=== PATIENT | female | born 1995 | race Caucasian/White ===

== ENCOUNTER 2021-04-06 18:28 | Observation (INO) ==
[2021-04-06] MEDS ORDERED: KETOROLAC TROMETHAMINE 15 MG/ML VIAL IV STA (18:35)
[2021-04-06] MEDS ORDERED: SODIUM CHLORIDE 0.9% 500 ML IV STA (18:35)
[2021-04-06] MEDS ORDERED: MoRPHine SULFATE 4 MG/ML 1 ML CARP\\VIAL IV STA (18:40)
[2021-04-06] MEDS ORDERED: ONDANSETRON INJ 2 MG/ML 2 ML VIAL IV STA (18:41)
--- NOTE | 2021-04-06 18:41 | Emergency Department Note ---
Impression & Plan Acute appendicitis, COVID-19 ED Provider Note Provider: Rafael Richter MD DATE OF SERVICE: 04/06/2021 CHIEF COMPLAINT: Abdominal pain HISTORY OF PRESENT ILLNESS: Patient is 25-year old otherwise healthy female presenting here today complaining of onset yesterday afternoon around 4 PM of pain in the right lower quadrant of her abdomen. Patient denies any trauma. She reports some nausea throughout the day and decreased appetite. Does report nonbloody diarrhea throughout the day today. Patient states the pain was persistent throughout the day today and again located in the right lower quadrant of her abdomen. Denies history of similar pain. Denies any radiation of pain down legs or into the back. Talked with her medical provider referred her here for further evaluation. Patient has a history of abdominal surgery. Patient states she has been on OCPs and is 2 weeks away from her expected period. Patient states that she tried some Tylenol earlier in the day which did not help her pain. REVIEW OF SYSTEMS: A total of 10 review of systems was obtained and negative except as stated above in the HPI. 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 NECK: Trachea midline. LUNGS: Airway patent. No retractions. Breath sounds clear with good air entry bilaterally. HEART: Regular rate and rhythm. No chest wall tenderness ABDOMEN: Soft positive Rovsing's sign with significant tenderness in the right lower quadrant. Negative Ricci's. No flank tenderness appreciated. SKIN: Acyanotic, warm, dry, without rashes EXTREMITIES: Without swelling, tenderness or deformity NEUROLOGICAL: No focal deficits. No aphasia. No facial droop or slurred speech. CONTINUOUS CARDIAC MONITORING: was ordered and showed a heart rate of 60s to 70s bpm in normal sinus rhythm Patient's laboratory studies and imaging reviewed. Differential includes Appendicitis, ovarian cyst, ovarian torsion, ectopic pr egnancy, TOA, PID, infections, diverticulitis, UTI, obstruction, mesenteric ischemia, aortic pathology, inflammatory bowel disease, renal colic, PUD, pancreatitis, biliary pathology, hernia, volvulus, constipation, as well as other pathologies. IMPRESSION/MEDICAL DECISION MAKING: Patient presentation concerning for possible colitis or appendicitis. No history of IBD/IBS reported. Location of the pain does not seem that consistent especially with referred pain from the left abdomen for gynecological pathology. Denies any vaginal bleeding. test was sent. Basic labs are sent. CT scan of the abdomen pelvis was ordered. Patient treated her symptomatically for pain given some IV fluid and Zofran. Blood work here is reassuring without leukocytosis or anemia. No severe electrolyte abnormalities. No findings concerning for acute hepatitis or pancreatitis. No bilirubin elevation. Negative . Covid test incidentally returns positive. CT of the abdomen pelvis with IV and oral contrast per radiology reports as below. Evidence of acute uncomplicated appendicitis. Informed the patient of the findings. Surgery team was contacted. They will assess the patient and plan for further definite care of her appendicitis. Discussed with the patient. DIAGNOSIS: COVID-19, acute uncomplicated appendicitis DISPOSITION: Surgery team to evaluate for further care Preliminary Findings Only See Final Report For Complete Findings CT ABDOMEN & PELVIS With Contrast: Uncomplicated acute appendicitis. Dilated and inflamed appendix measures 9.3 mm. No free air or abscess. No bowel obstruction. Liver, gallbladder, pancreas, spleen, adrenal glands are unremarkable. No hydronephrosis. Sub-centimeters cortical cyst left kidney. Uterus and urinary bladder are unremarkable. No acute osseous findings. Radiologist: Sorin Hwang M.D. Study ready at 21:38 and initial results transmitted at 21:41 Past Med/Surg History Social History Smoking Status: Never smoker Preferred Language: Bulgarian Feels Safe at Home: Yes Allergies Allergies Allergy/AdvReac Type Severity Reaction Status Date / Time No Known Allergies Allergy Verified 04/06/21 18:54 Home Meds Home Medications Medication Instructions Recorded Confirmed L norgest/E estradiol-E estrad 1 tab PO DAILY 04/06/21 04/06/21 0.15 mg-30 mcg (84)/10 mcg(7) tabs,3mos (Daysee) Results & Data (ED) Vital Signs Vital Signs - 24 hr 04/06/21 18:32 04/06/21 18:41 04/06/21 18:45 Temperature 36.1 C L Temperature Source Temporal Artery Scan Pulse Rate 74 61 67 Pulse Rate from SpO2 Sensor 61 Respiratory Rate 18 22 18 Blood Pressure 138/86 114/76 Blood Pressure Mean 103 88 Pulse Oximetry 100 99 99 Oxygen Delivery Method Room Air Room Air Room Air Sepsis Recent Fever Within 48 Hours No Sepsis New/Unexplained Change in Mental Status No Sepsis Action Taken by Nursing No Action Required 04/06/21 19:00 04/06/21 20:00 04/06/21 21:00 Temperature Temperature Source Pulse Rate 67 59 L 64 Pulse Rate from SpO2 Sensor 67 59 L 65 Respiratory Rate 16 21 16 Blood Pressure 112/70 104/67 132/87 Blood Pressure Mean 84 79 102 Pulse Oximetry 98 100 100 Oxygen Delivery Method Room Air Room Air Room Air Sepsis Recent Fever Within 48 Hours Sepsis New/Unexplained Change in Mental Status Sepsis Action Taken by Nursing 04/06/21 21:37 04/06/21 22:00 04/06/21 23:00 Temperature Temperature Source Pulse Rate 61 64 63 Pulse Rate from SpO2 Sensor 61 64 62 Respiratory Rate 21 23 15 Blood Pressure 133/87 135/94 115/78 Blood Pressure Mean 102 107 90 Pulse Oximetry 100 100 99 Oxygen Delivery Method Room Air Room Air Sepsis Recent Fever Within 48 Hours Sepsis New/Unexplained Change in Mental Status Sepsis Action Taken by Nursing Laboratory Data Result diagrams: 04/06/21 18:43 04/06/21 18:43 Lab Results 04/06/21 04/06/21 04/06/21 Range/Units 18:43 18:43 18:43 WBC 6.62 (4.8-10.8) K/uL RBC 4.52 (4.2-5.4) M/uL Hgb 13.4 (12.0-16.0) g/dL Hct 40.1 (37-47) % MCV 88.7 (80-100) fL MCH 29.6 (25-34) pg MCHC 33.4 (32-36) g/dL RDW Std Deviation 41.6 (36.4-46.3) fL RDW Coeff of Anna 12.8 (11.5-14.5) % Plt Count 285 (130-400) K/uL MPV 10.5 H (7.4-10.4) fL Immature Gran % (Auto) 0.2 % Neut % (Auto) 50.7 % Lymph % (Auto) 40.6 % Elmore % (Auto) 7.7 % Eos % (Auto) 0.3 % Baso % (Auto) 0.5 % Neut # (Auto) 3.36 (1.4-6.5) K/uL Lymph # (Auto) 2.69 (1.2-3.4) K/uL Elmore # (Auto) 0.51 (0.11-0.59) K/uL Eos # (Auto) 0.02 (0-0.5) K/uL Baso # (Auto) 0.03 (0-0.2) K/uL Immature Gran # (Auto) 0.01 (0.00-0.02) K/uL Sodium 139 (136-145) mmol/L Potassium 3.6 (3.5-5.1) mmol/L Chloride 105 (98-107) mmol/L Carbon Dioxide 25 (21-32) mmol/L Anion Gap 9.0 (3-11) BUN 8 (7-18) mg/dl Creatinine 0.87 (0.6-1.2) mg/dl Est Cr Clr Drug Dosing 89.7 ml/min Est GFR ( Amer) 108.1 ml/min Est GFR (Non-Af Amer) 93.2 ml/min BUN/Creatinine Ratio 9.2 L (10-20) Glucose 85 (70-99) mg/dl Calcium 8.7 (8.5-10.1) mg/dl Total Bilirubin 0.3 (0.2-1) mg/dl AST 18 (15-37) U/L ALT 20 (12-78) U/L Alkaline Phosphatase 72 (45-117) U/L Total Protein 7.6 (6.4-8.2) gm/dl Albumin 3.1 L (3.4-5.0) gm/dl Globulin 4.5 H (2.5-4.0) gm/dl Albumin/Globulin Ratio 0.7 L (0.9-2) Lipase 137 (73-393) U/L HCG, Qual Negative (Negative) COVID-19 Eval Order SARS-CoV-2 (PCR) (Negative) 04/06/21 04/06/21 Range/Units 18:58 18:58 WBC (4.8-10.8) K/uL RBC (4.2-5.4) M/uL Hgb (12.0-16.0) g/dL Hct (37-47) % MCV (80-100) fL MCH (25-34) pg MCHC (32-36) g/dL RDW Std Deviation (36.4-46.3) fL RDW Coeff of Anna (11.5-14.5) % Plt Count (130-400) K/uL MPV (7.4-10.4) fL Immature Gran % (Auto) % Neut % (Auto) % Lymph % (Auto) % Elmore % (Auto) % Eos % (Auto) % Baso % (Auto) % Neut # (Auto) (1.4-6.5) K/uL Lymph # (Auto) (1.2-3.4) K/uL Elmore # (Auto) (0.11-0.59) K/uL Eos # (Auto) (0-0.5) K/uL Baso # (Auto) (0-0.2) K/uL Immature Gran # (Auto) (0.00-0.02) K/uL Sodium (136-145) mmol/L Potassium (3.5-5.1) mmol/L Chloride (98-107) mmol/L Carbon Dioxide (21-32) mmol/L Anion Gap (3-11) BUN (7-18) mg/dl Creatinine (0.6-1.2) mg/dl Est Cr Clr Drug Dosing ml/min Est GFR ( Amer) ml/min Est GFR (Non-Af Amer) ml/min BUN/Creatinine Ratio (10-20) Glucose (70-99) mg/dl Calcium (8.5-10.1) mg/dl Total Bilirubin (0.2-1) mg/dl AST (15-37) U/L ALT (12-78) U/L Alkaline Phosphatase (45-117) U/L Total Protein (6.4-8.2) gm/dl Albumin (3.4-5.0) gm/dl Globulin (2.5-4.0) gm/dl Albumin/Globulin Ratio (0.9-2) Lipase (73-393) U/L HCG, Qual (Negative) COVID-19 Eval Order Covid19 at [facility] SARS-CoV-2 (PCR) POSITIVE A* (Negative) Administered Medications Lactated Ringer's (Lr) 1,000 mls @ 75 mls/hr IV .[id number] DAVID Stop: 11/02/21 22:14 Last Admin: 04/06/21 22:27 Dose: 75 mls/hr Documented by: [id number] Discontinued Medications Sodium Chloride (Nss) 500 mls @ 999 mls/hr IV .[id number] STA Stop: 04/06/21 19:05 Last Infusion: 04/06/21 19:23 Dose: 0 mls/hr Documented by: [id number] Admin: 04/06/21 18:52 Dose: 999 mls/hr Documented by: [id number] Cefoxitin Sodium (Mefoxin) 2,000 mg in 60 mls @ 100 mls/hr IV NOW STA Stop: 04/06/21 22:47 Last Admin: 04/06/21 22:31 Dose: 100 mls/hr Documented by: [id number] Ioversol (Optiray 320 100ml) 94 ml IV ONCE ONE Stop: 04/06/21 20:30 Last Admin: 04/06/21 20:29 Dose: 1 ml Documented by: [id number] Ketorolac Tromethamine (Ketorolac Tromethamine 15 Mg/Ml Vial) 10 mg IV NOW STA Stop: 04/06/21 18:36 Last Admin: 04/06/21 18:54 Dose: 10 mg Documented by: [id number] Morphine Sulfate (Morphine Sulfate 4 Mg/Ml 1 Ml Carp\Vial) 4 mg IV NOW STA Stop: 04/06/21 18:41 Last Admin: 04/06/21 18:55 Dose: 4 mg Documented by: [id number] Ondansetron HCl (Ondansetron Inj 2 Mg/Ml 2 Ml Vial) 4 mg IV NOW STA Stop: 04/06/21 18:42 Last Admin: 04/06/21 18:53 Dose: 4 mg Documented by: [id number] Discharge Plan Visit Data Chief Complaint: Abdominal Pain Stated Complaint: RLQ ABD PAIN ED Provider: Rafael Richter Discharge Problem: Acute appendicitis, COVID-19 Patient Disposition: Admitted As Inpatient Discharge Instructions Interventions: ED Discharge Assessment Last Done: 04/06/21 23:10 Forms Stand Alone Forms: [facility] Prescriptions Prescriptions: No Action L norgest/e.estradiol-e.estrad [Daysee] 0.15 mg-30 mcg (84)/10 mcg (7) tablets,dose pack,3 month 1 tab PO DAILY RF: 0 Referrals Referrals: PCP,NO [Physician] - Discharge Problem: Acute appendicitis Qualifiers: Acute appendicitis type: with localized peritonitis Appendicitis gangrene presence: unspecified whether gangrene present Appendicitis perforation p resence: without perforation Appendicitis abscess presence: without abscess Qualified Code(s): K35.30 - Acute appendicitis with localized peritonitis, without perforation or gangrene
[2021-04-06 18:57] LABS: Basophils # (auto) 0.03 K/uL (0-0.2); Basophils % (auto) 0.5 %; Eosinophils # (auto) 0.02 K/uL (0-0.5); Eosinophils % (auto) 0.3 %; Hematocrit (blood only) 40.1 % (37-47); Hemoglobin 13.4 g/dL (12.0-16.0); Immature Granulocytes # (auto) 0.01 K/uL (0.00-0.02); Immature Granulocytes % (auto) 0.2 %; Lymphocytes # (auto) 2.69 K/uL (1.2-3.4); Lymphocytes % (auto) 40.6 %; Mean Corpuscular Hemoglobin 29.6 pg (25-34); Mean Corpuscular Hgb Conc 33.4 g/dL (32-36); Mean Corpuscular Volume 88.7 fL (80-100); Mean Platelet Volume 10.5 fL (7.4-10.4); Monocytes # (auto) 0.51 K/uL (0.11-0.59); Monocytes % (auto) 7.7 %; Neutrophils # (auto) 3.36 K/uL (1.4-6.5); Neutrophils % (auto) 50.7 %; Platelet Count 285 K/uL (130-400); RDW Coefficient of Variation 12.8 % (11.5-14.5); RDW Standard Deviation 41.6 fL (36.4-46.3); Red Blood Count 4.52 M/uL (4.2-5.4); White Blood Count 6.62 K/uL (4.8-10.8)
[2021-04-06 19:16] LABS: Albumin Level 3.1 gm/dl (3.4-5.0); BUN Creatinine Ratio 9.2 (10-20); Calcium 8.7 mg/dl (8.5-10.1); Creatinine Clr Calc Pharmacy 89.7 ml/min; Est GFR (African American) 108.1 ml/min; Est GFR (Non-African American) 93.2 ml/min; Potassium 3.6 mmol/L (3.5-5.1)
[2021-04-06 19:17] LABS: Pregnancy Test, Serum Negative (Negative)
[2021-04-06 19:19] LABS: Albumin Globulin Ratio 0.7 (0.9-2); Bilirubin,Total 0.3 mg/dl (0.2-1); Globulin 4.5 gm/dl (2.5-4.0); Total Protein 7.6 gm/dl (6.4-8.2)
[2021-04-06] MEDS ORDERED: OPTIRAY 320 100ml IV ONE (20:29)
--- NOTE | 2021-04-06 22:03 | History & Physical Report ---
Date of Service April 06, 2021 Assessment & Plan (1) Acute appendicitis: Plan: Due to the patient's imaging and symptomatology we will plan on proceeding with operative intervention this evening. I have consented the patient for laparoscopic, possible open appendectomy. I have outlined the risks, benefits, and alternatives with the patient. I have also discussed the expected postoperative recovery with her and she wishes to proceed. We will keep the patient n.p.o. until after her procedure Will implement gentle hydration with IV fluids We will administer antibiotics in the form of cefoxitin As noted Covid test has already been performed and is noted to be positive Additional recommendations be forthcoming based on operative findings as well as her clinical course as it unfolds History of Present Illness Chief Complaint: Abdominal pain Primary Care Provider: Sumit Perkins MD This is a 25-year-old female who developed some periumbilical abdominal pain yesterday. She notes that the pain got progressively worse and subsequently has transitioned to the right lower quadrant. She says the pain does not radiate. She notes that the pain is worse when lying flat and with certain movements. She does not note any palliative factors other medicines that were administered in the emergency department. She has had a low-grade fever but it has been less than 101. She has nausea without vomiting. She notes that she ate some soup at approximately 3:00 PM today but has not had any oral intake since then except for oral contrast that was required for her CAT scan. She notes that she has had no prior abdominal surgeries. Patient notes that she did receive the Darin & Darin Covid vaccine approximately 7 months ago. In the emergency department patient had labs and imaging which independent reviewed. She did have a CT scan of the abdomen and pelvis utilizing oral and IV contrast. This showed uncomplicated acute appendicitis in which the appendix was dilated inflamed measuring approximate 9.3 mm. There is no evidence of free air, abscess, or perforation. Labs include a CBC her white blood cell count, hemoglobin, hematocrit, and platelet count are all within normal range. Chemistry profile showed sodium, potassium, BUN, and creatinine were all within normal range. There are no significant elevation of LFTs. A test was noted to be negative. A Covid test was performed and was noted to be positive. I discussed the patient's positive Covid test with her and as noted above she said she did receive the Darin & Darin vaccine approximate 7 months ago. Concerning Covid symptomatology she has had a low-grade fever as noted above. She also notes a slight cough but denies any dyspnea. She denies any loss of her sense of taste or smell. In the emergency department the patient was resting comfortably in bed she was in no distress. Allergies Allergy/AdvReac Type Severity Reaction Status Date / Time No Known Allergies Allergy Verified 04/06/21 18:54 Home Medications Medication Instructions Recorded Confirmed Type L norgest/E estradiol-E estrad 1 tab PO DAILY 04/06/21 04/06/21 History 0.15 mg-30 mcg (84)/10 mcg(7) tabs,3mos (Daysee) Past Med/Surg History Social History Smoking Status: Never smoker Preferred Language: Sierra Leonean Feels Safe at Home: Yes Review of Systems Constitutional: + fever; no chills Eyes: no diplopia Ear, Nose, Mouth, Throat: no ear pain and no sore throat Respiratory: no dyspnea Cardiovascular: no chest pain Gastrointestinal: + abdominal pain, + nausea and + diarrhea/loose stools; no vomiting Genitourinary: no dysuria Musculoskeletal: no back pain Integumentary: no rash Neurologic: no localized weakness Physical Exam Constitutional: well developed and well nourished; no acute distress Eyes: no conjunctival abnormality ENMT: Ears: no hearing impairment Mouth: no oropharynx abnormality Neck: trachea midline Respiratory: normal respiratory effort; no respiratory distress and no labored breathing Cardiovascular: Rate/Rhythm: regular rate and regular rhythm Gastrointestinal (Abdomen): Abdomen is soft and nondistended. Bowel sounds are present. Patient had marked pain with palpation in the right lower quadrant. Rovsing sign was noted to be positive. There was rebound tenderness noted. Musculoskeletal: No calf tenderness Skin: no rashes Neurologic: moves all extremities Psychiatric: A+Ox3, euthymic affect Results & Data Results & Data ([facility]) Vital Signs (Past 12 Hours) Vital Signs Temp Pulse Resp BP Pulse Ox 04/06/21 21:37 61 21 133/87 100 04/06/21 21:00 64 16 132/87 100 04/06/21 20:00 59 L 21 104/67 100 04/06/21 19:00 67 16 112/70 98 10/03/21 18:45 67 18 99 04/06/21 18:41 61 22 114/76 99 04/06/21 18:32 36.1 C L 74 18 138/86 100 Supervising Physician Co-Signing Physician Notes As per Curtis Fonseca physician assistant federal public defender CT scan reviewed Patient has had a cough recently developed abdominal pain localized in the right lower quadrant Physical exam shows exquisite tenderness of McBurney's point At this point I recommended to proceed with laparoscopic appendectomy possible open risk and complication explained to the patient including bleeding infection converting to an open procedure injury to other organs and she would like to proceed accordingly Apparently she is due to getting next week She is Covid positive and the only symptom she had was a slight cough She is a schoolteacher Permit signed all questions answered PG Care Time/CCT Total # of Minutes Spent Total Time Spent with Patient: Total time spent is greater than 50% in coor dination of care (as documented) at patient's floor/unit and/or counseling patient: Coding Level of Care Code INT OBSERVATION CARE 70M LVL 3 Diagnoses Acute appendicitis K35.30 Acute appendicitis type: with localized peritonitis Appendicitis abscess presence: without abscess Appendicitis gangrene presence: unspecified whether gangrene present Appendicitis perforation presence: without perforation (1) Acute appendicitis Acute appendicitis type: with localized peritonitis Appendicitis abscess presence: without abscess Appendicitis gangrene presence: unspecified whether gangrene present Appendicitis perforation presence: without perforation Qualified Code(s): K35.30 - Acute appendicitis with localized peritonitis, without perforation or gangrene
[2021-04-06] MEDS ORDERED: cefOXitin 2,000 MG/60 ML BAG IV STA (22:12)
[2021-04-06] MEDS: LACTATED RINGER'S 1,000 ML IV SCH (22:27)
--- NOTE | 2021-04-06 22:29 | Anesthesiology Consultation ---
Date of Service April 06, 2021 Assessment & Plan Chart Review Chart Review: Acceptable Risk for Surgery and Patient NOT seen in Pre Admission Testing Consults Requested none ASA [id number] Proposed Anesthesia Anesthesia Type: General Additional Comments: covid test(+) History Height/Weight Height: 5 ft 5 in Weight: 66.1 kg Allergies Allergy/AdvReac Type Severity Reaction Status Date / Time No Known Allergies Allergy Verified 04/06/21 18:54 Medications Home Medications Medication Instructions Recorded Confirmed Last Taken L norgest/E estradiol-E estrad 1 tab PO DAILY 04/06/21 04/06/21 04/06/21 0.15 mg-30 mcg (84)/10 mcg(7) tabs,3mos (Daysee) NPO Date Last Intake of Fluids: 04/06/21 Time Last Intake of Fluids: 20:30 Last Intake of Fluids Comment: oral contrast Date Last Intake of Solids: 04/06/21 Time Last Intake of Solids: 15:00 Exercise / Class Metabolic Activity 1 > 8 Run/Swim/Ski/Tennis Past Anesthesia History No Hx of Anesthesia Complications and No Family Hx of Anesthesia Complications History of PONV No Hx of PONV and No Hx of Motion Sickness Social History Smoking Status: Never smoker Physical Exam Vital Signs Last Vital Signs Temp 36.1 C L 04/06/21 18:32 Pulse 61 04/06/21 21:37 Resp 21 04/06/21 21:37 BP 133/87 04/06/21 21:37 Pulse Ox 100 04/06/21 21:37 Testing Laboratory Results 04/06/21 18:43 04/06/21 18:43
[2021-04-06] MEDS ORDERED: LIDOCAINE/EPINEPHRINE 1% 20 ML VIAL ONE (22:48)
[2021-04-06] MEDS ORDERED: fentaNYL citrate 100 MCG/2 ML VIAL ONE ×2 (22:50→23:04)
[2021-04-06] MEDS ORDERED: MIDAZOLAM HCL 1 MG/ML 2ML VIAL ONE (22:50)
[2021-04-06] MEDS ORDERED: NEOSTIGMINE METHYLSULFATE 1 MG/ML 10ML VIAL ONE (23:10)
[2021-04-06] MEDS ORDERED: ONDANSETRON INJ 2 MG/ML 2 ML VIAL ONE (23:10)
[2021-04-06] MEDS ORDERED: GLYCOPYRROLATE 0.2 MG/ML VIAL ONE (23:10)
[2021-04-06] MEDS ORDERED: DEXAMETHASONE SOD INJ 4 MG/ML VIAL ONE (23:10)
[2021-04-06] MEDS ORDERED: PROPOFOL IV EMULSION 10 MG/ML 20 ML VIAL IV ONE (23:10)
[2021-04-06] MEDS ORDERED: LIDOCAINE 2% 2 ML VIAL/AMP(20MG/ML) INFIL ONE (23:10)
[2021-04-07] MEDS ORDERED: fentaNYL citrate 100 MCG/2 ML VIAL IV PRN (00:24)
[2021-04-07] MEDS ORDERED: ATROPINE SULFATE 0.1 MG/ML 10ML SYR IV PRN (00:24)
[2021-04-07] MEDS ORDERED: ePHEDrine sulfate 50 MG/ML AMP IV PRN (00:24)
[2021-04-07] MEDS ORDERED: ONDANSETRON INJ 2 MG/ML 2 ML VIAL IV PRN ×2 (00:24→02:04)
[2021-04-07] MEDS ORDERED: FLUMAZENIL 0.1 MG/1 ML 10 ML VIAL IV PRN (00:24)
[2021-04-07] MEDS ORDERED: NALOXONE HCL 0.4 MG/1 ML VIAL/CARP IV PRN (00:24)
[2021-04-07] MEDS ORDERED: PROMETHAZINE HCL 12.5 MG in SODIUM CHLORIDE 0.9% 50 ML IV PRN (00:24)
--- NOTE | 2021-04-07 00:36 | Post Operative Brief Note ---
PG Immediate Post Op with CF Date of Surgery April 07, 2021 Pre & Post Diagnosis Operation Date: 04/06/21 23:00 Pre-Op Diagnosis: Acute appendicitis Post-Op Diagnosis: Acute appendicitis I identified the patient and participated in the time-out.: Yes Procedure Operation Date: 04/06/21 23:00 Actual Procedures p Laparoscopic Appendectomy(Not Applicable) - Ankit Santoro MD, FACS Surgeon Ankit Santoro MD, FACS Computer Technologist [email or web address] Estimated Blood Loss 5 Findings Consistent with Post-Op Diagnosis Specimens Specimen Description: A. Appendix
--- NOTE | 2021-04-07 00:47 | Operative Report ---
Post Operative Report Pre & Post Diagnosis Operation Date: 04/06/21 23:00 Pre-Op Diagnosis: Acute appendicitis Post-Op Diagnosis: Acute appendicitis I identified the patient and participated in the time-out.: Yes Procedure Operation Date: 04/06/21 23:00 Actual Procedures p Laparoscopic Appendectomy(Not Applicable) - Ankit Santoro MD, FACS Patient was brought into the operating theater general trach anesthesia supine position abdomen prepped Betadine solution properly draped timeout was had systemic antibiotics on board patient identified small incision was made supraumbilically transversely between the 2 sinus tracts of jewelry went through subcutaneous tissue Dolph clamps were used to elevate the abdominal wall incision fascia was made 0 Vicryl stay sutures we entered the peritoneal cavity and direct visualization followed by my millimeter trocar and slow insufflation to 10 mmHg we then inserted the camera could visualize right lower quadrant some fine adhesions from the cecum to the anterior abdominal wall laterally were noted could not see the appendix on direct realization placed a 5 mm right upper quadrant port with preemptive local analgesic at this point were able to place a grasper and elevate the cecum still could not see the appendix but it appeared to be done in the gutter this point I converted the 5 mm umbilical port by enlarging the incision and placed a 12 mm and the 5 mm was placed in the left lower quadrant camera followed in that area using the umbilical port and right upper quadrant port were able to elevate the cecum and identified a dilated appendix with minimal fibrinous exudate nonruptured seem like the dilation was pretty much to the bottom of the appendix at its takeoff from the cecum therefo re we created a window between the mesoappendix and the cecum we fired a blue- purple [place] stapler then we worked across the mesentery which was thickened we elected to just space using the fine dissector to create windows in the mesentery close to the appendix and used a 10 mm clips to divide the mesoappendix making sure that hemostasis was excellent once this been completed we placed the appendix in an Endopouch and took it out intact through the umbilical port patient was then placed in reverse Trendelenburg position we suctioned out the area making sure the staple line was hemostatic along with the mesentery we were well away from the terminal ileum at this point camera was placed in the right upper quadrant trocar site after we had visualized the right upper quadrant and there was no evidence of any bleeding in individual trochars were taken out last the umbilical trocar umbilical opening the fascia was closed with 0 PDS suture [id number] times 3 subcutaneous tissue in all 3 opening sites were brought together 4 Monocryl Steri-Strips applied procedure was tolerated well by the patient estimate blood loss 5 cc addendum Curtis Fonseca physician shipping and receiving assistant was present throughout the whole case and helped the retraction exposure camera work and wound closure Addendum spoke with Wilder at [phone] Surgeon Ankit Santoro MD, FACS Gore Maker veronika [email or web address] Estimated Blood Loss 5 Findings Consistent with Post-Op Diagnosis Acute appendicitis with fibrin exudate nonruptured Specimens Appendix Description of Procedure Merda I attest to the content of the Intraoperative Record and any orders documented therein. Any exceptions are noted below.
--- NOTE | 2021-04-07 01:11 | Anesthesiology Progress Note ---
Date of Service April 07, 2021 Anesthesia Post Procedure Vital Signs Vital Signs: Temp Pulse Resp BP Pulse Ox 04/06/21 23:00 63 15 115/78 99 04/06/21 22:00 64 23 135/94 100 04/06/21 21:37 61 21 133/87 100 04/06/21 21:00 64 16 132/87 100 04/06/21 20:00 59 L 21 104/67 100 04/06/21 19:00 67 16 112/70 98 04/06/21 18:45 67 18 99 04/06/21 18:41 61 22 114/76 99 04/06/21 18:32 36.1 C L 74 18 138/86 100 Transfer of Care Handoff Completed per policy Notes Mental Status: alert / awake / arousable Patient Amnestic to Procedure: Yes Nausea / Vomiting: adequately controlled Pain: adequately controlled Airway Patency, RR, SpO2: stable & adequate BP & HR: stable & adequate Hydration State: stable & adequate Anesthetic Complications: no major complications apparent
[2021-04-07] MEDS ORDERED: SUCCINYLCHOLINE CHLORIDE 20 MG/ML 10 ML VIAL IV ONE (01:16)
[2021-04-07] MEDS ORDERED: ROCURONIUM BROMIDE 10 MG/ML 5 ML VIAL IV ONE (01:16)
[2021-04-07] MEDS ORDERED: DEXAMETHASONE SOD INJ 4 MG/ML VIAL ONE (01:17)
[2021-04-07] MEDS ORDERED: fentaNYL citrate 100 MCG/2 ML VIAL ONE (01:22)
[2021-04-07] MEDS ORDERED: MoRPHine SULFATE 4 MG/ML 1 ML CARP\\VIAL IV PRN (02:04)
[2021-04-07] MEDS ORDERED: KETOROLAC TROMETHAMINE 15 MG/ML VIAL IV PRN (02:04)
[2021-04-07] MEDS ORDERED: oxyCODONE HCL IR 5 MG TAB (IMMEDIATE RELEASE) PO PRN (02:04)
[2021-04-07] MEDS ORDERED: ACETAMINOPHEN 1,000 MG/100 ML VIAL IV PRN (02:04)
--- NOTE | 2021-04-07 07:45 | CT Scan Report ---
CT abd pelvis oral and IV con CLINICAL INDICATION: MN ^900 ^RLQ pain, ?appy. TECHNIQUE: Helical axial images of the abdomen and pelvis were obtained and displayed. Automated dose lowering techniques and/or adjustment according to patient size were utilized for this exam. This e xam was performed with intravenous contrast. COMPARISON: None available at the time of this dictation. FINDINGS: Lower chest: No acute abnormality Liver: Unremarkable. No focal lesions are seen. Gallbladder and biliary tree: No calcified gallstones. Normal caliber wall. No intra- or extrahepatic biliary ductal dilation. Pancreas: Unremarkable, no focal lesions. Spleen: Unremarkable. Adrenals: Unremarkable. Kidneys and ureters: Subcentimeter hypodensities are too small to characterize. Bladder: Unremarkable. Reproductive organs: Unremarkable. Bowel: The appendix is edematous and enlarged measuring 8 mm in diameter. No periappendiceal abscess or free air is seen. Lymph nodes Retroperitoneal: Unremarkable. Mesenteric: Unremarkable. Pelvic: Unremarkable. Peritoneum: Normal Vessels: Unremarkable. Abdominal wall: Unremarkable. Bones: Unremarkable. IMPRESSION: Findings compatible with uncomplicated acute appendicitis without evidence of free air or abscess. ACT 112: Negative or not required by law. Electronically signed by: Shaw Croft M.D. 04/07/2021 7:43 AM
--- NOTE | 2021-04-07 10:25 | Discharge Summary ---
Date of Service April 07, 2021 Admission HPI Per Admitting Provider This is a 25-year-old female who developed some periumbilical abdominal pain yesterday. She notes that the pain got progressively worse and subsequently has transitioned to the right lower quadrant. She says the pain does not radiate. She notes that the pain is worse when lying flat and with certain movements. She does not note any palliative factors other medicines that were administered in the emergency department. She has had a low-grade fever but it has been less than 101. She has nausea without vomiting. She notes that she ate some soup at approximately 3:00 PM today but has not had any oral intake since then except for oral contrast that was required for her CAT scan. She notes that she has had no prior abdominal surgeries. Patient notes that she did receive the [employer] Covid vaccine approximately 7 months ago. In the emergency department patient had labs and imaging which independent reviewed. She did have a CT scan of the abdomen and pelvis utilizing oral and IV contrast. This showed uncomplicated acute appendicitis in which the appendix was dilated inflamed measuring approximate 9.3 mm. There is no evidence of free air, abscess, or perforation. Labs include a CBC her white blood cell count, hemoglobin, hematocrit, and platelet count are all within normal range. Chemistry profile showed sodium, potassium, BUN, and creatinine were all within normal range. There are no significant elevation of LFTs. A test was noted to be negative. A Covid test was performed and was noted to be positive. I discussed the patient's positive Covid test with her and as noted above she said she did receive the [employer] vaccine approximate 7 months ago. Concerning Covid symptomatology she has had a low-grade fever as noted above. She also notes a slight cough but denies any dyspnea. She denies any loss of her sense of taste or smell. In the emergency department the patient was resting comfortably in bed she was in no distress. Principal Diagnosis Acute appendicitis Discharge Exam Constitutional WD/WN, vitals as above Gastrointestinal (Abdomen) Inspection/Auscultation: + abdominal surgical incision (some dry blood on umbilical steris); abdomen not distended Percussion/Palpation: abdomen soft Discharge Data Allergies Allergy/AdvReac Type Severity Reaction Status Date / Time No Known Allergies Allergy Verified 04/06/21 18:54 Consultations 04/06/21 21:57 Consult General Surgery Stat 04/06/21 22:18 ED Decision to Admit Stat Procedures Performed Operation Date: 04/06/21 23:00 Actual Procedures p Laparoscopic Appendectomy(Not Applicable) - Ankit Santoro MD, FACS Ordered Studies 04/06/21 18:35 CT abd pelvis oral and IV con Urgent Hospital Course (1) Acute appendicitis: 25 y/o female presented to the ER with RLQ abdominal pain. Although white count was only 6,000, CT was consistent with acute appendicitis. She did test positive for COVID-19 on preop screening. She was asymptomatic and had been vaccinated. She was taken to the operating room for laparoscopic appendectomy and transferred to the COVID unit for overnight observation. In the morning she was able to advance diet and tolerate oral analgesics. She was stable for discharge home that afternoon. (2) COVID-19: Total Time Total Time Spent Total Time Spent (In Minutes): 15 Discharge Plan Discharge Items Patient Disposition: Home - Self-Care Reason For Visit: APPY Discharge Diagnosis: Appendicitis Condition on Discharge: Good Activity: As commented below Activity Comment: Walk daily Lifting: No more than 10 pounds Bathing Comment: can shower tomorrow, leave steri strips on for 1 week Sexual Activity: Wait until after follow-up appointment Exercise/Sports: Wait until after follow-up appointment Driving/Machine Use: Resume 3 days after discharge Non-emergency contact: Surgeon Call non-emergency contact if: you have any medication questions, your pain is not controlled, you have a fever, your temperature is above 101.5 and your wound has increased redness Follow-up/Referrals: Ankit Santoro MD, FACS [Surgeon] - (OFFICE WILL CALL WITH APPOINTMENT) [facility] [Physician] - Diet: Regular Addtl Attending Provider Instructions: Call office with questions Pending Studies at Discharge: No Stand-Alone Forms: My [employer], Work/School Release, Smoking Cessation Medications and DC Order Prescriptions: New oxycodone-acetaminophen [Percocet] 5-325 mg tablet 1 - 2 tab PO Q4H PRN (Reason: pain, initial therapy, max 6 daily) Qty: 15 RF: 0 Continued L norgest/e.estradiol-e.estrad [Daysee] 0.15 mg-30 mcg (84)/10 mcg (7) tablets,dose pack,3 month 1 tab PO DAILY RF: 0 Discharge Orders: Discharge Order (Routine); Ordered 04/07/21 Ordered By: Krishan Simpson/Other Patient Handouts: COVID-19 Home Care Admission Data Admit Date/Time: 04/07/21 00:44 Attending Provider: Ankit Santoro Admit Provider: Ankit Santoro Primary Care Provider: Sumit Perkins Other Providers: Farrukh Fonseca Other Interventions: Discharge Summary Assessment (RN) Last Done: 04/07/21 10:44 Coding Level of Care Code D/C DAY MANAGEMENT <30 MINS Diagnoses Acute appendicitis K35.30 Acute appendicitis type: with localized peritonitis Appendicitis abscess presence: without abscess Appendicitis gangrene presence: unspecified whether gangrene present Appendicitis perforation presence: without perforation COVID-19 U07.1
--- NOTE | 2021-04-07 10:27 | Surgery Progress Note ---
Date of Service April 07, 2021 Assessment & Plan (1) Acute appendicitis: Plan: POD 1 lap appy advance diet, home if tolerates lunch (2) COVID-19: Plan: written instructions provided Admission and Anticipated Discharge Date Admission Date: April 07, 2021 Subjective no nausea, tolerating clears, minimal pain Physical Exam Constitutional: WD/WN, vitals as above Gastrointestinal (Abdomen): Inspection/Auscultation: + abdominal surgical incision (dry blood on umbilical steris); abdomen not distended Percussion/Palpation: abdomen soft Results & Data ([facility]) Vital Signs (Past 12 Hours) Vital Signs Temp Pulse Pulse Pulse Resp BP BP 04/07/21 07:24 37.0 C 87 14 99/54 L 04/07/21 05:14 36.9 C 81 16 108/63 04/07/21 05:00 36.9 C 91 H 16 108/63 04/07/21 04:00 36.9 C 95 H 16 108/62 04/07/21 03:04 36.9 C 71 16 124/73 04/07/21 02:30 36.4 C L 68 16 125/78 04/07/21 02:16 37 C 67 16 123/78 04/07/21 01:45 72 20 135/82 04/07/21 01:35 36.8 C 74 20 136/79 04/07/21 01:25 78 18 136/75 04/07/21 01:15 83 12 137/77 04/07/21 01:05 102 H 15 123/67 04/07/21 01:00 36.6 C 101 H 18 138/83 04/06/21 23:00 63 15 115/78 Pulse Ox 04/07/21 07:24 95 04/07/21 05:14 96 04/07/21 05:00 96 04/07/21 04:00 96 04/07/21 03:04 96 04/07/21 02:30 95 04/07/21 02:16 95 04/07/21 01:45 96 04/07/21 01:35 100 04/07/21 01:25 100 04/07/21 01:15 100 04/07/21 01:05 99 04/07/21 01:00 100 04/06/21 23:00 99 PG Care Time/CCT Total # of Minutes Spent Total Time Spent with Patient: Total time spent is greater than 50% in coordination of care (as documented) at patient's floor/unit and/or counseling patient: Coding Level of Care Code None Diagnoses Acute appendicitis K35.30 Acute appendicitis type: with localized peritonitis Appendicitis abscess presence: without abscess Appendicitis gangrene presence: unspecified whether gangrene present Appendicitis perforation presence: without perforation COVID-19 U07.1 (1) Acute appendicitis Acute appendicitis type: with localized peritonitis Appendicitis abscess presence: without abscess Appendicitis gangrene presence: unspecified whether gangrene present Appendicitis perforation presence: without perforation Qualified Code(s): K35.30 - Acute appendicitis with localized peritonitis, without perforation or gangrene
[2021-04-07 10:33] LABS: Appearance Urine Clear (Clear); Bacteria Urine Automated Negative (Negative); Bilirubin Urine Negative (Negative); Blood Urine Negative (Negative); Color Urine Yellow; Glucose Urine UA Negative (Negative); Ketones Urine 2+ (Negative); Leukocyte Esterase Urine 1+ (Negative); Nitrite Urine Negative (Negative); Protein Urine Negative (Negative); RBC Urine Automated 0-4 /hpf (0-4); Specific Gravity Urine 1.021 (1.000-1.030); Urobilinogen Urine Negative (Negative); pH Urine 6.5 (4.5-7.5)
[2021-04-07] MEDS: LACTATED RINGER'S 1,000 ML IV SCH (11:48)
== END 2021-04-07 13:32 | disposition home or self-care (01) ==
LOC: ED 18:28 → 3W 23:10 → OR 23:10